=== PATIENT | female | born 1980 | race Asian ===

== ENCOUNTER 2020-01-24 12:10 | Emergency (ER) | payer MEDICAID ==
[~2020-01-24] VITALS: Ht 157.5 cm; Wt 45.4 kg
[2020-01-24 13:07] VITALS: BP_SYST 138
--- NOTE | 2020-01-24 13:14 | NUR ---
AMBULATED TO [facility] 1
--- NOTE | 2020-01-24 14:00 | NUR ---
LORETA TO ASSUME CARE, PT CALM, ALERT, RESP UNLABORED, SKIN WARM AND DRY. NAD
[2020-01-24 14:16] LABS: BASOPHILS % (AUTO) 0.7 % (0.0-2.0); EOSINOPHILS % (AUTO) 0.3 % (0.0-4.0); HEMATOCRIT 43.7 % (36-48); HEMOGLOBIN 14.4 g/dL (12.0-16.0); LYMPHOCYTES # (AUTO) 1.1 K/uL (1.0-5.5); LYMPHOCYTES % (AUTO) 17.1 % (20.5-51.5); MEAN CORPUSCULAR HEMOGLOBIN 31 pg (27-31); MEAN CORPUSCULAR HGB CONC 33 % (32-36); MEAN CORPUSCULAR VOLUME 94 fL (79.0-98.0); MONOCYTES # (AUTO) 0.5 K/uL (0.0-1.0); MONOCYTES % (AUTO) 7.9 % (1.7-9.3); NEUTROPHILS # (AUTO) 4.6 K/uL (1.8-7.7); PLATELET COUNT (AUTO) 328 K/uL (130-430); RED BLOOD CELL COUNT(AUTO) 4.64 MIL/uL (4.2-6.2); RED CELL DISTRIBUTION WIDTH 13.6 % (9.0-15.0); WHITE BLOOD COUNT (AUTO) 6.2 K/uL (4.8-10.8)
--- NOTE | 2020-01-24 14:42 | NUR ---
SEIZURE PADS PLACED TO BEDRAILS
[2020-01-24 14:45] LABS: ALANINE AMINOTRANSFERASE 20 U/L (12-78); ANION GAP 14 (5-15); ASPARTATE AMINOTRANSFERASE 19 U/L (10-37); CALCIUM 9.1 mg/dL (8.4-11.0); CHLORIDE 105 mmol/L (98-107); CREATININE 0.64 mg/dL (0.55-1.30); GFR AFRICAN AMERICAN 133 mL/min (>90); GLUCOSE 82 mg/dL (70-99); POTASSIUM 3.2 mmol/L (3.5-5.1); SODIUM SERUM 142 mmol/L (136-145); TOTAL BILIRUBIN 0.6 mg/dL (0.0-1.0); UREA NITROGEN, BLOOD 8 mg/dL (8-21)
[2020-01-24 14:46] LABS: ACETAMINOPHEN < 1 ug/mL (1-30); ALCOHOL, BLOOD 132 mg/dL (<10)
[2020-01-24 14:52] LABS: BILIRUBIN,URINE NEGATIVE (NEGATIVE); BLOOD, URINE NEGATIVE (NEGATIVE); CLARITY/URINE CLEAR (CLEAR); COLOR,URINE YELLOW (YELLOW); GLUCOSE,URINE NEGATIVE (NEGATIVE); KETONES,URINE NEGATIVE (NEGATIVE); LEUKOCYTE ESTERASE ,URINE TRACE (NEGATIVE); NITRITE, URINE NEGATIVE (NEGATIVE); PH,URINE 6.5 (5.0-8.0); PROTEIN URINE NEGATIVE (NEGATIVE); UROBILINOGEN,URINE 0.2 (0.2-1.0)
[2020-01-24] MEDS ORDERED: POTASSIUM CHLORIDE 20 MEQ TAB.PRT.SR PO ONE (15:00)
--- NOTE | 2020-01-24 15:10 | NUR ---
PT COMMUNICATED HER RECENT SOCIAL PROBLEMS AND SI. SHE STATED SHE WOUND REMAIN D\SAFE IN ER. FULL VIEW OF STAFF, PT IS CALM, ALERT, RESP UNLABORED, COMMUNICATES CLEARLY IN FULL COMPLETE SENTENCES
[2020-01-24 15:12] LABS: BARBITURATE, URINE NEGATIVE (NEG <=200); BENZODIAZEPINE, URINE NEGATIVE (NEG <=150); CANNABINOID, URINE POSITIVE (NEG <=50); COCAINE, URINE NEGATIVE (NEG <=150); METHAMPHETAMINES SCREEN,URINE NEGATIVE (NEG <=500); OPIATE, URINE NEGATIVE (NEG <=100); PHENCYCLIDINE SCREEN,URINE NEGATIVE (NEG <=25); UR TRICYCLIC ANTIDEPRESSANTS NEGATIVE (NEG <=300); URINE AMPHETAMINE NEGATIVE (NEG <=500); URINE METHADONE NEGATIVE (NEG <=200); URINE OXYCODONE SCREEN NEGATIVE (NEG <=100); URINE PROPOXYPHENE SCREEN NEGATIVE (NEG <=300)
[2020-01-24] MEDS ORDERED: NACL 0.9% 1,000 ML IV ONE (15:30)
[2020-01-24 15:37] LABS: BACTERIA,URINE RARE /HPF (None Seen); WBC,URINE 0-3 /HPF (0-3)
[2020-01-24] MEDS ORDERED: LORazepam 2 MG/ML VIAL IVP ONE (16:00)
--- NOTE | 2020-01-24 16:29 | NUR ---
Pt speaking to tele psyc for evaluation at this time.
--- NOTE | 2020-01-24 17:00 | NUR ---
PT PLACED IN FULL VIEW OF MULTIPLE STAFF. PT PROVIDED ME WITH VERBAL CONTRACT FOR SAFETY NO DISTRESS, TEARFULL AND COOPERATIVE,
--- NOTE | 2020-01-24 18:28 | NUR ---
EASILY AROUSED, DENIES CP/SOB. COMMUNICATES CLEARLY
[2020-01-24] MEDS ORDERED: SERTRALINE HCL 50 MG TABLET PO SCH (18:30)
[2020-01-24] MEDS ORDERED: QUEtiapine FUMARATE 25 MG TABLET PO PRN (18:30)
[2020-01-24] MEDS: busPIRone HCL 5 MG TABLET PO SCH (19:05)
--- NOTE | 2020-01-24 19:19 | NUR ---
SBAR REPORT TO RN
--- NOTE | 2020-01-24 19:44 | NUR ---
Pt is sleeping. Chest rise and fall observed, no acute distress noted at this time. Will continue to monitor.
--- NOTE | 2020-01-24 20:30 | NUR ---
Pt is resting in bed, no acute distress noted at this time. Will continue to monitor Q15 min for safety
[2020-01-24] MEDS ORDERED: ARIPiprazole 5 MG TAB PO SCH (21:00)
--- NOTE | 2020-01-24 21:30 | NUR ---
Pt is sleeping in bed, no acute distress at this time. Will continue to monitor.
--- NOTE | 2020-01-24 22:30 | NUR ---
Pt is sleeping in bed, no acute distress at this time. Will continue to monitor.
--- NOTE | 2020-01-24 23:26 | NUR ---
Pt is sleeping in bed, no acute distress at this time. Will continue to monitor.
--- NOTE | 2020-01-25 00:30 | NUR ---
Pt is sleeping at this time, will continue to monitor.
--- NOTE | 2020-01-25 01:00 | NUR ---
Pt is sleeping in bed, no acute distress noted at this time. Will continue to monitor around the clock for safety
--- NOTE | 2020-01-25 02:00 | NUR ---
Pt is sleeping in bed, no acute distress noted at this time. Will continue to monitor around the clock for safety
--- NOTE | 2020-01-25 03:00 | NUR ---
Pt is sleeping in bed, no acute distress noted at this time. Will continue to monitor around the clock for safety
--- NOTE | 2020-01-25 04:01 | NUR ---
Pt is sleeping in bed, no acute distress noted at this time. Will continue to monitor around the clock for safety
--- NOTE | 2020-01-25 05:50 | NUR ---
Pt has been moved to bed 5 for continuation of hospital stay. VSS will continue to monitor.
--- NOTE | 2020-01-25 07:00 | NUR ---
pt does not verbalize suicidal ideations at this time. VSS
[2020-01-25] MEDS ORDERED: busPIRone HCL 5 MG TABLET PO ONE (07:15)
[2020-01-25] MEDS ORDERED: SERTRALINE HCL 50 MG TABLET PO ONE (07:15)
[2020-01-25] MEDS: busPIRone HCL 5 MG TABLET PO SCH ×3 (08:04→15:00)
[2020-01-25] MEDS ORDERED: SULFAMETHOXAZOLE/TRIMETHOPR DS 1 TABLET PO ONE (08:30)
--- NOTE | 2020-01-25 09:45 | NUR ---
Pt sleeping in gurney at this time, no distress, breakfast eaten
--- NOTE | 2020-01-25 11:00 | NUR ---
Pt resting, no distress noted
--- NOTE | 2020-01-25 13:17 | NUR ---
spoke with Yasmeen from PET team regarding pt evaluation
--- NOTE | 2020-01-25 15:27 | NUR ---
BEDSIDE EVAL IN PROGRESS, PT CALM, ALERT, COOPERATIVE
[2020-01-25 16:25] LABS: HCG,QUAL RESULT NEGATIVE (NEGATIVE)
--- NOTE | 2020-01-25 16:40 | NUR ---
PT RESTING IN GURNEY, CALM AND COOPERATIVE. NO DISTRESS AT THIS TIME
[2020-01-25 16:58] VITALS: BP_SYST 121
--- NOTE | 2020-01-25 16:59 | NUR ---
Patient to be transferred to [facility]. Is being transferred due to higher level of care. Receiving facility has accepting physician and available space. ER physician has signed transfer form. Patient or responsible constitution party has agreed to transfer and signed form. Patient belongings inventoried and will be sent with patient. Copy of nursing notes, lab reports, EKG, Physicians Orders and X-rays to be sent with patient. Report called to ANYA at receiving facility. Receiving physician is EMANUEL. [facility] ambulance service has been called for transfer.
== END 2020-01-25 16:58 ==
LOC: SED 12:10
DX: F32.9 Major depressive disorder, single episode, unspecified (principal); R45.851 Suicidal ideations; N39.0 Urinary tract infection, site not specified; E87.6 Hypokalemia; F12.90 Cannabis use, unspecified, uncomplicated; F10.10 Alcohol abuse, uncomplicated; Y90.6 Blood alcohol level of 120-199 mg/100 ml
CPT/HCPCS: 36415; 80053; 80307; 81000; 81025; 84703; 85025; 96374; 99285; G0480; G0481; G0482; J2060; J7030